=== PATIENT | male | born 2000 | race Two or more races ===

== ENCOUNTER 2024-04-05 16:29 | Emergency (ER) | payer SELFPAY ==
[~2024-04-05] VITALS: Ht 177.8 cm; Wt 102.0 kg
[2024-04-05 16:37] VITALS: TEMP 98.3
[2024-04-05 17:07] LABS: BASOPHILS % (AUTO) 0.5 % (0.0-2.0); EOSINOPHILS % (AUTO) 1.9 % (1.0-6.0); HEMATOCRIT 42.3 % (41-53); HEMOGLOBIN 14.3 g/dL (13.5-17.5); LYMPHOCYTES % (AUTO) 23.2 % (22.0-44.0); MEAN CORPUSCULAR HEMOGLOBIN 30.5 pg (26.0-34.0); MEAN CORPUSCULAR HGB CONC 33.7 G/dL (31.0-37.0); MEAN CORPUSCULAR VOLUME 91 fL (80-100); MONOCYTES # (AUTO) 0.7 K/uL (0.1-1.0); MONOCYTES % (AUTO) 8.7 % (2.0-9.0); NEUTROPHILS # (AUTO) 5.6 K/uL (1.8-7.7); NEUTROPHILS % (AUTO) 65.7 % (40.0-70.0); PLATELET COUNT (AUTO) 266 K/uL (150-450); RED BLOOD CELL COUNT(AUTO) 4.68 MIL/uL (4.50-5.90); RED CELL DISTRIBUTION WIDTH 13.4 % (11.5-14.5); WHITE BLOOD COUNT (AUTO) 8.5 K/uL (4.5-11.0)
[2024-04-05 17:16] LABS: ANION GAP 7 mmol/L (8-16); CALCIUM, TOTAL 8.3 mg/dL (8.8-10.5); CARBON DIOXIDE 28 mmol/L (22-29); CHLORIDE 103 mmol/L (98-107); CREATININE 0.88 mg/dL (0.60-1.30); GLOMERULAR FILTR. RATE CALC > 60 mL/min (>60); GLUCOSE,RANDOM 103 mg/dL (70-110); POTASSIUM 4.2 mmol/L (3.5-5.1); SODIUM SERUM 138 mmol/L (136-145); UREA NITROGEN, BLOOD 13 mg/dL (7-18)
[2024-04-05 17:24] LABS: ALANINE AMINOTRANSFERASE 34 U/L (12-78); ALBUMIN 3.5 g/dL (3.4-5.0); ALKALINE PHOSPHATASE 106 U/L (46-116); ASPARTATE AMINOTRANSFERASE 28 U/L (15-37); BILIRUBIN,TOTAL 0.3 mg/dL (0.1-1.0)
[2024-04-05 17:25] LABS: ACETAMINOPHEN < 2 mcg/mL (10-30); ALCOHOL, BLOOD (SERUM) < 3 mg/dL (0-10)
[2024-04-05 17:33] LABS: SALICYLATE < 0.2 mg/dL (2.8-20.0)
[2024-04-05 18:15] VITALS: BP 129/76; PULSE 96; RESP 16
== END 2024-04-05 19:25 ==
LOC: EMS 16:31
CPT/HCPCS: 99283; 80053; 85025; G0480; G0481

== ENCOUNTER 2025-07-05 04:20 | Emergency (ER) | payer OTHER ==
[~2025-07-05] VITALS: Ht 177.8 cm; Wt 90.9 kg
[2025-07-05 05:01] VITALS: TEMP 98.4
[2025-07-05] MEDS ORDERED: FLUORESCEIN SODIUM 1 MG STRIP ONE (06:24)
[2025-07-05] MEDS: PROPARACAINE HCL 0.5% 15 ML OPHTHALMIC SOLUTION OS ONE (06:26)
[2025-07-05] MEDS: TROPICAMIDE 1% 3 ML OPHTHALMIC SOLUTION OS ONE (06:45)
[2025-07-05 07:10] VITALS: BP 125/81; PULSE 78; RESP 18; O2SAT 99
== END 2025-07-05 09:15 | disposition home or self-care (01) ==
LOC: EMS 04:21
DX: H53.8 Other visual disturbances (principal); F11.90 Opioid use, unspecified, uncomplicated
CPT/HCPCS: 99283